=== PATIENT | female | born 1945 | race Two or more races ===

== ENCOUNTER 2018-07-02 10:54 | Outpatient (CLI) | payer OTHER | END 2018-07-02 11:03 | disposition home or self-care (01) | LOC: MAMO-SONO 10:54 | DX: Z12.31 Encounter for screening mammogram for malignant neoplasm of breast (principal); Z87.898 Personal history of other specified conditions; R92.1 Mammographic calcification found on diagnostic imaging of breast; N64.89 Other specified disorders of breast ==

== ENCOUNTER 2019-07-22 08:31 | Outpatient (CLI) | payer OTHER | END 2019-07-22 08:34 | disposition home or self-care (01) | LOC: MAMO-SONO 08:31 | DX: Z12.31 Encounter for screening mammogram for malignant neoplasm of breast (principal); Z87.898 Personal history of other specified conditions; Z80.3 Family history of malignant neoplasm of breast ==

== ENCOUNTER 2020-09-08 09:56 | Outpatient (CLI) | payer OTHER | END 2020-09-08 09:59 | disposition home or self-care (01) | LOC: MAMO-SONO 09:56 | PROVIDERS: ATTEND Specialist | DX: D24.1 Benign neoplasm of right breast (principal); D24.2 Benign neoplasm of left breast ==